=== PATIENT | female | born 1935 | race African-American/Black ===

== ENCOUNTER 2018-09-28 23:20 | Emergency (ER) | payer OTHER, BC ==
[2018-09-28 23:37] VITALS: BP 181/84; PULSE 72; TEMP 98; BMI 32.3
--- NOTE | 2018-09-29 01:50 | PDOC ---
*Physical Exam - Vital Signs Last Vital Signs Temp Pulse Resp BP Pulse Ox 98.0 F 72 18 181/84 H 100 09/28/18 23:33 09/28/18 23:33 09/28/18 23:33 09/28/18 23:33 09/28/18 23:33 Medical Decision Making - Medical Decision Making 09/29/18 01:50 Patient seen by the advanced practice provider under my direct supervision. Ancillary testing reviewed as necessary. I agree with plan as outlined by the advanced practice provider. *DC/Admit/Observation/Transfer Diagnosis at time of Disposition: Foot pain, right - Discharge Dispostion Disposition: HOME Condition at time of disposition: Stable - Referrals Referrals: Adolfo Sprague MD [Primary Care Provider] - 2 Days - Patient Instructions Additional Instructions: Thank you for choosing [facility]. It was a pleasure taking care of you. Your xrays were normal Follow-up with your PCP in 2-3 days Return to the Emergency Department if your symptoms worsen or persist, you have fever, shortness of breath, chest pain, increased swelling of legs, change in skin color or other concerning symptoms. - Post Discharge Activity
--- NOTE | 2018-09-29 03:03 | PDOC ---
History of Present Illness - General Chief Complaint: Edema Stated Complaint: RIGHT LEG SWELLING Time Seen by Provider: 09/29/18 01:46 History Source: Patient, Family Past History - Past Medical History Allergies/Adverse Reactions: Allergies Allergy/AdvReac Type Severity Reaction Status Date / Time No Known Allergies Allergy Verified 09/28/18 23:37 CVA: Yes COPD: No HTN: Yes Thyroid Disease: Yes (hypo) Other medical history: brain aneursym - Suicide/Smoking/Psychosocial Hx Smoking History: Former smoker Have you smoked in the past 12 months: No Information on smoking cessation initiated: No Hx Alcohol Use: No Drug/Substance Use Hx: No *Physical Exam - Vital Signs Last Vital Signs Temp Pulse Resp BP Pulse Ox 98.0 F 72 18 181/84 H 100 09/28/18 23:33 09/28/18 23:33 09/28/18 23:33 09/28/18 23:33 09/28/18 23:33 - Physical Exam General Appearance: No: Apparent Distress Musculoskeletal: positive: Other (no swelling or deformity of BLE; no erythema, unable to pinpoint to location of pain; pulses intact) Extremity: negative: Pedal Edema, Swelling, Calf Tenderness, Erythema Integumentary: positive: Normal Color Neurologic: positive: Alert, Normal Mood/Affect Moderate Sedation - Procedure Monitoring Vital Signs: Procedure Monitoring Vital Signs Temperature 98.0 F 09/28/18 23:33 Pulse Rate 72 09/28/18 23:33 Respiratory Rate 18 09/28/18 23:33 Blood Pressure 181/84 H 09/28/18 23:33 O2 Sat by Pulse Oximetry (%) 100 09/28/18 23:33 ED Treatment Course - RADIOLOGY Radiology Studies Ordered: Category Date Time Status ANKLE & FOOT-RIGHT* [RAD] Stat Radiology 09/29/18 02:04 Taken KNEE 4 POS-LEFT [RAD] Stat Radiology 09/29/18 02:04 Taken KNEE 4 POS-RIGHT [RAD] Stat Radiology 09/29/18 02:04 Taken Medical Decision Making - Medical Decision Making Of note: Patient is poor historian 83 y/o F hx of CVA (with dysarthria), HTN,hypothyroidism, borderline DM presents with R ankle/foot pain. Patient mentions it has been hurting for some time, but per daughter, she only complained of it today. Per daughter, a few days ago, patient had mechanical fall, and landed on both knees. Did not complain of pain at the time. Denies head/neck trauma. At baseline, patient uses cane. PE unremarkable Xrays done and no acute findings noted Patient reassured Advised f/u with PCP - stable for d/c 09/29/18 02:59 *DC/Admit/Observation/Transfer Diagnosis at time of Disposition: Foot pain, right - Discharge Dispostion Disposition: HOME Condition at time of disposition: Stable Decision to Admit order: No - Referrals Referrals: Adolfo Sprague MD [Primary Care Provider] - 2 Days - Patient Instructions Additional Instructions: Thank you for choosing [facility]. It was a pleasure taking care of you. Your xrays were normal Follow-up with your PCP in 2-3 days Return to the Emergency Department if your symptoms worsen or persist, you have fever, shortness of breath, chest pain, increased swelling of legs, change in skin color or other concerning symptoms. - Post Discharge Activity
== END 2018-09-29 03:05 | disposition home or self-care (01) ==
LOC: JER 23:20
DX: M79.671 Pain in right foot (principal); I10 Essential (primary) hypertension; E06.9 Thyroiditis, unspecified; E11.9 Type 2 diabetes mellitus without complications; I69.822 Dysarthria following other cerebrovascular disease
CPT/HCPCS: 73564-TC-LT-FY; 73564-TC-RT-FY; 73610-TC-RT-FY; 73630-TC-RT-FY; 99281-25